=== PATIENT | female | born 1990 | race Caucasian/White ===

== ENCOUNTER 2017-07-10 10:09 | Emergency (ER) | payer MEDICAID ==
[2017-07-10 11:04] VITALS: BP 95/60; PULSE 89; RESP 18; TEMP 97.7
--- NOTE | 2017-07-10 11:04 | PD ---
HPI Chief Complaint Twins with right lower quadrant pain Date Seen: Jul 10, 2017 Travel History International Travel<30 Days: No Contact w/Intl Traveler<30Days: No Known Affected Area: No History of Present Illness HPI Patient is 26-year-old white female at 22 weeks with twin gestation who sees care and [facility], she was here today [place] the [place] and started having a severe right lower quadrant sharp pain that doubled her over, She's not had this Pain before. She denies bleeding or rupture the membranes. Babies are active., She denies vaginal discharge and itching irritation or bladder symptoms. Para: 2 : 3 History Obstetric History Obstetric History 2 term vaginal deliveries in [place] Social History Alcohol Use: No Tobacco Use: No Substance Abuse: No Allergies-Medications (Allergen,Severity, Reaction): Coded Allergies: Amoxicillin (Verified Allergy, Severe, 07/10/17) Ceclor (Verified Allergy, Severe, 07/10/17) Penicillin (Verified Allergy, Severe, 07/10/17) Review of Systems General / Constitutional: No: Fever, Weight Gain, Chills, Other Eyes: No: Diploplia, Blurred Vision, Visual changes, Pain, Photophobia HENT: No: Headaches, Vertigo, Lightheadedness Cardiovascular: No: Irregular Rhythm, Chest Pain or Discomfort, Palpitations, Tachycardia, Syncope, Varicosities, Edema, Cyanosis Respiratory: No: Cough, Short of Breath, Other Gastrointestinal: Abdominal Pain, No: Nausea, Vomiting, Diarrhea Genitourinary: No: Decreased Urinary Output, Oliguria Musculoskeletal: No: Limited ROM, Weakness, Cramping, Edema, Pain Skin: No Rash, No Itching, No Dryness, No Lumps, No Change in Pigmentation, No Change in Nails, No Alopecia, No Lesions Neurologic: No: Weakness, Dizziness, Syncope, Focal Abnormalities, Coordination Problem, Headache, Slurred Speech, Seizures Psychiatric: No: Depression, Suicidal Ideations, Homicidal Ideation Endocrine: No: Heat Intolerance, Cold Intolerance, Polydipsia, Polyuria, Other Physical Exam Narrative GENERAL: Well-nourished, well-developed patient. SKIN: Warm and dry. HEAD: Normocephalic and atraumatic. EYES: No scleral icterus. No injection or drainage. ENT: No nasal drainage noted. Mucous membranes pink. Airway patent. NECK: Supple, trachea midline. No JVD. CARDIOVASCULAR: Regular rate and rhythm without murmurs, gallops, or rubs. RESPIRATORY: Breath sounds equal bilaterally. No accessory muscle use. BREASTS: Bilateral exam showed no masses , no retractions, no nipple discharge. ABDOMEN/GI: Abdomen soft, non-tender, bowel sounds present, no rebound, no guarding Gravid to [-27] weeks size[twins] Fundal Height: [-27]twins GENITOURINARY: External Genitalia: intact and normal in appearance BUS glands: [-] Cervix: [-Closed at the internal os] Dilatation: [-] Fingertip at the external os Effacement: [-] Thick Station: [-3] Presentation: [-] Vertex /backdown transverse by ultrasound Membranes: [intact Uterine Contractions: [-none] FHT's: 130s/130s EXTREMITIES: No cyanosis or edema. BACK: Nontender without obvious deformity. No CVA tenderness. NEUROLOGICAL: Awake and alert. Motor and sensory grossly within normal limits. Five out of 5 muscle strength in all muscle groups. Normal speech. Data Data Orders Ob Poc Ultrasound (07/10/17 ) Labs Bedside ultrasound done by myself shows twin gestation in a vertex/ back down transverse lie with intervening membrane noted 2 placentas one anterior and one posterior, normal amniotic fluid volume. Baby a is 21 weeks 1 day size weight 360 g, twin B is 21 weeks size 359 g both babies are very active ,both female, anatomy scan normal both babies MDM Interpretation(s) Patient 26-year-old white female 22 weeks with twin gestation and has right lower quadrant pain [place] this sounds like a round ligament strain soft tissue strain. There are no contractions cervix is closed internal os and thick no bleeding or leakage of fluid. Urine dipstick negative for infection, ultrasound baby showed to 21 weeks size babies that are concordant with the separate sacs and placentas normal amniotic fluid volume, with good cardiac motion and activity in both babies Plan Plan patient be discharged to increase bedrest today with a heating pad over the sore area she also to do a hot bath if she like. Use Tylenol 1 or 2 every 4 -6 hours for pain. Increase her by mouth fluids and follow up with her OB provider if symptoms persist. Diagnosis Diagnosis: Primary Impression: 22 weeks gestation of Additional Impressions: Twin gestation in second trimester Pain of round ligament affecting , antepartum Disposition: 01 DISCHARGE HOME Condition: Stable Danilo Finney II, MD Jul 10, 2017 11:04
== END 2017-07-10 11:17 | disposition home or self-care (01) ==
LOC: HOBED 10:09
DX: O26.899 Other specified pregnancy related conditions, unspecified trimester (principal); R10.31 Right lower quadrant pain; O30.002 Twin pregnancy, unspecified number of placenta and unspecified number of amniotic sacs, second trimester; Z88.0 Allergy status to penicillin; Z3A.22 22 weeks gestation of pregnancy
CPT/HCPCS: 76815